=== PATIENT | female | born 1980 | race Caucasian/White ===

== ENCOUNTER 2018-02-07 07:38 | Day surgery (SDC) | payer SELFPAY ==
[~2018-02-07 07:38] MED LIST: DIPHENHYDRAMINE HCL 50 MG/ML VIAL ONE; EPINEPHRINE INJ 1 MG/10 ML DISP.SYRIN ONE; FLUMAZENIL INJ 0.5 MG/5 ML VIAL ONE; GLUCAGON,HUMAN RECOMB 1 MG INJ ONE; NALOXONE HCL INJ/PF 0.4 MG/1 ML SDV ONE; ONDANSETRON HCL INJ/PF 4 MG/2 ML SDV ONE
[2018-02-07] MEDS: MIDAZOLAM 2 MG/2 ML INJ ONE ×3 (08:06→08:19)
[2018-02-07] MEDS: FENTANYL CITRATE INJ/PF 100 MCG/2 ML AMPUL ONE ×3 (08:08→08:16)
--- NOTE | 2018-02-07 08:30 | Operative Report ---
Operative Report DATE OF SURGERY: 02/07/18 Operative Report: The risks benefits and alternatives of the procedure explained to the patient in detail and informed consent is obtained.A GIF Olympus video scope was inserted into the patient's mouth and hypopharynx, the esophagus is identified intubated and insufflated, the scope was then advanced through the esophagus stomach and duodenum ,retroflexion maneuver is done, the esophagus stomach and first and second portions of the duodenum examined PREOPERATIVE DIAGNOSIS: Dysphagia, early satiety POSTOPERATIVE DIAGNOSIS: gastric outlet stricture requiring balloon dilation with 12mm balloon. gastritis, s/p biopsy for H.Pylori. hiatal hernia. esophagitis. possible Schatzki's ring biopsy to break OPERATION: EGD with balloon dilation. EGD with biopsy SURGEON: BERENICE CERDA ANESTHESIA: Moderate Sedation - 6 mg of Versed, 125 mcg of fentanyl. Conscious sedation monitoring time 30 minutes. TISSUE REMOVED OR ALTERED: As noted above. COMPLICATIONS: None. ESTIMATED BLOOD LOSS: None. INTRAOPERATIVE FINDINGS: As noted above. PROCEDURE: Patient tolerated the procedure well. No immediate postprocedure complications are noted. Patient discharged in good condition. Discharge date 02/07/2018. Discharge diet: Regular. Discharge activity: Regular. 2-3-week follow-up to discuss findings. Patient is instructed call the office or proceed to the emergency room should there be any further problems or questions. Wait on the pathology.
[2018-02-07 09:39] VITALS: BP 101/72
== END 2018-02-07 09:40 | disposition home or self-care (01) ==
LOC: END 07:38
PROVIDERS: ATTEND Internal Medicine Gastroenterology
DX: K29.50 Unspecified chronic gastritis without bleeding (principal); K20.9 Esophagitis, unspecified; K44.9 Diaphragmatic hernia without obstruction or gangrene; Z77.22 Contact with and (suspected) exposure to environmental tobacco smoke (acute) (chronic); Z79.899 Other long term (current) drug therapy; Z79.1 Long term (current) use of non-steroidal anti-inflammatories (NSAID)
CPT/HCPCS: 43239; 43249; 88342 ×2; 88305 ×2; C1726; J2250; J3010; J2310; J0171; J1200; J1610; J2405; J3490

== ENCOUNTER 2018-04-02 09:59 | Day surgery (SDC) | payer SELFPAY ==
[~2018-04-02 09:59] MED LIST changes: -DIPHENHYDRAMINE HCL 50 MG/ML VIAL ONE; -EPINEPHRINE INJ 1 MG/10 ML DISP.SYRIN ONE; -FLUMAZENIL INJ 0.5 MG/5 ML VIAL ONE; -GLUCAGON,HUMAN RECOMB 1 MG INJ ONE; -NALOXONE HCL INJ/PF 0.4 MG/1 ML SDV ONE; -ONDANSETRON HCL INJ/PF 4 MG/2 ML SDV ONE; +PROPOFOL INJ 200 MG/20 ML VIAL IV ONE
[2018-04-02 11:56] VITALS: BP 107/62
--- NOTE | 2018-04-02 14:34 | Operative Report ---
Operative Report DATE OF SURGERY: 04/02/18 Operative Report: The risks, benefits and alternatives of the procedure including the risks of bleeding, perforation requiring surgery are explained to the patient in detail and informed consent was obtained. The patient was placed in the left, lateral decubital position. Timeout was called. Propofol medications administered. A rectal examination is done which did not reveal any masses, tears or fissures. An Olympus videoscope was inserted into the patient's rectum. The scope was then carefully advanced all the way to the cecum. The cecum was identified by the usual anatomical landmarks including the ileocecal valve as well as the appendiceal office. Photodocumentation was obtained. The scope was then sequentially pulled back via the various segments of the colon including the ascending colon, hepatic flexure, transverse colon, splenic flexure, descending colon and finally into the rectosigmoid portions of the colon. Retroflexion maneuver was performed. The risks benefits and alternatives of the procedure explained to the patient in detail and informed consent is obtained.A GIF Olympus video scope was inserted into the patient's mouth and hypopharynx, the esophagus is identified intubated and insufflated, the scope was then advanced through the esophagus stomach and duodenum ,retroflexion maneuver is done the esophagus stomach and first and second portions of the duodenum examined PREOPERATIVE DIAGNOSIS: Gastric outlet obstruction, nausea vomiting in the past. Change in bowel habits POSTOPERATIVE DIAGNOSIS: Right colon inflammation status post biopsy to rule out microscopic colitis. Gastric outlet stricture status post dilatation 15 mm for 1 minute followed by 18 mm for 1 minute. There was some heme demonstrated postprocedure indicating dilation of the stricture OPERATION: Colonoscopy with biopsy. EGD with balloon dilation SURGEON: BERENICE CERDA ANESTHESIA: LMAC TISSUE REMOVED OR ALTERED: As noted above. COMPLICATIONS: None. ESTIMATED BLOOD LOSS: None. INTRAOPERATIVE FINDINGS: As noted above. PROCEDURE: Patient tolerated the procedure well. No immediate postprocedure complications are noted. Patient discharged in good condition. Discharge date 04/02/2018 Discharge diet: Regular. Discharge activity: Regular. 2-3-week follow-up to discuss findings. Patient is instructed to call the office or proceed to the emergency room should there be any further problems or questions. I will wait on the pathology.
== END 2018-04-02 11:50 | disposition home or self-care (01) ==
LOC: END 09:59
PROVIDERS: ATTEND Internal Medicine Gastroenterology
DX: K31.89 Other diseases of stomach and duodenum (principal); K31.1 Adult hypertrophic pyloric stenosis; K44.9 Diaphragmatic hernia without obstruction or gangrene; K21.9 Gastro-esophageal reflux disease without esophagitis; K52.9 Noninfective gastroenteritis and colitis, unspecified
CPT/HCPCS: 43249; 45380; 88305 ×2; C1726; J2704; 813

== ENCOUNTER 2018-11-05 10:31 | Day surgery (SDC) | payer SELFPAY ==
[2018-11-05] MEDS ORDERED: PROPOFOL INJ 200 MG/20 ML VIAL IV ONE (11:28)
--- NOTE | 2018-11-05 12:38 | Operative Report ---
Operative Report DATE OF SURGERY: 11/05/18 Operative Report: The risks benefits and alternatives of the procedure explained to the patient in detail and informed consent is obtained.A GIF Olympus video scope was inserted into the patient's mouth and hypopharynx, the esophagus is identified intubated and insufflated, the scope was then advanced through the esophagus stomach and duodenum ,retroflexion maneuver is done, the esophagus stomach and first and second portions of the duodenum examined. PREOPERATIVE DIAGNOSIS: Nausea vomiting, gastroparesis POSTOPERATIVE DIAGNOSIS: Gastritis status post biopsy rule out Helicobacter pylori. Submucosal Botox injection at the gastric outlet total of 100 units per 5 mL with 1 cc injection. OPERATION: EGD with submucosal injection. EGD with biopsy SURGEON: BERENICE CERDA ANESTHESIA: LMAC TISSUE REMOVED OR ALTERED: As noted above COMPLICATIONS: None. ESTIMATED BLOOD LOSS: None. INTRAOPERATIVE FINDINGS: As noted above. PROCEDURE: Patient tolerated the procedure well. No immediate postprocedure comp occasions are noted. Patient is discharged in good condition. Discharge date 11/05/2018. Discharge diet: Regular. Discharge activity: Regular. 2 to 3-week follow-up to discuss findings. Patient is instructed to call the office or proceed to the emergency room should there be any further problems or questions. Wait on the pathology.
--- NOTE | 2018-11-05 12:48 | Operative Report ---
Operative Report DATE OF SURGERY: 11/05/18 Operative Report: The risks benefits and alternatives of the procedure explained to the patient in detail and informed consent is obtained.A GIF Olympus video scope was inserted into the patient's mouth and hypopharynx ,the esophagus is identified intubated and insufflated, the scope was then advanced through the esophagus stomach and duodenum, retroflexion maneuver is done ,the esophagus stomach and first and second portions of the duodenum examined. PREOPERATIVE DIAGNOSIS: Nausea vomiting POSTOPERATIVE DIAGNOSIS: Gastric eyelid obstruction status post balloon dilatation from 12 mm to 13.5 mm to 15 mm OPERATION: EGD with submucosal injection. EGD with biopsy SURGEON: BERENICE CERDA ANESTHESIA: LMAC TISSUE REMOVED OR ALTERED: None. COMPLICATIONS: None. ESTIMATED BLOOD LOSS: None. INTRAOPERATIVE FINDINGS: As noted above. PROCEDURE: Patient tolerated procedure well. No immediate postprocedure complications are noted. Patient is discharged in good condition. Discharge date 11/05/2018. Discharge diet: Regular. Discharge activity: Regular. 2 to 3-week follow-up to discuss findings. Patient is instructed to call the office or proceed to the emergency room should there be any further problems or questions. Of note previous procedure dictation on this patient can be ignored. This is in fact the dictation for this specific patient.
[2018-11-05 14:24] VITALS: BP 103/71
== END 2018-11-05 12:10 | disposition home or self-care (01) ==
LOC: END 10:31
PROVIDERS: ATTEND Internal Medicine Gastroenterology
DX: K31.1 Adult hypertrophic pyloric stenosis (principal); K44.9 Diaphragmatic hernia without obstruction or gangrene; D64.9 Anemia, unspecified; E07.9 Disorder of thyroid, unspecified
CPT/HCPCS: 43249; C1726; J2704

== ENCOUNTER 2020-02-11 22:24 | Observation (INO) | payer SELFPAY ==
--- NOTE | 2020-02-11 23:22 | ER Document Report ---
ED Medical Screen (RME) - General Chief Complaint: Flank Pain Stated Complaint: LEFT SIDED PAIN Time Seen by Provider: 02/11/20 23:14 Primary Care Provider: SERGE WATSON MD [Primary Care Provider] - Follow up as needed Mode of Arrival: Ambulatory Information source: Patient Notes: Patient is an otherwise healthy 39-year-old female coming in today with left low back pain that radiates around the left flank through the left upper quadrant up the left side of her back and into her neck and into her chest. Chest pain is pleuritic/sharp in nature. She is not short of breath. General exam: Nontoxic Cardiac regular rate and rhythm Pulmonary clear to auscultation Musculoskeletal no reproducible chest pain. Neuro no focal deficits I have greeted and performed a rapid initial assessment of this patient. A comprehensive ED assessment and evaluation of the patient, analysis of test results and completion of the medical decision making process will be conducted by additional ED providers. TRAVEL OUTSIDE OF THE [place] IN LAST 30 DAYS: No - Related Data Allergies/Adverse Reactions: No Known Allergies Allergy (Verified 11/05/18 10:38) Past Medical History - Past Medical History Cardiac Medical History: Denies: Hx Coronary Artery Disease, Hx Heart Attack, Hx Hypertension Pulmonary Medical History: Denies: Hx Asthma, Hx Bronchitis, Hx COPD, Hx Pneumonia Neurological Medical History: Denies: Hx Cerebrovascular Accident, Hx Seizures Renal/ Medical History: Reports: Hx Ovarian Cysts Musculoskeltal Medical History: Denies Hx Arthritis Past Surgical History: Reports: Hx Section, Hx Dilation and Curettage, Hx Gynecologic Surgery, Hx Tubal Ligation. Denies: Hx Hysterectomy - Immunizations Immunizations up to date: Yes Hx Diphtheria, Pertussis, Tetanus Vaccination: Yes Physical Exam - Vital signs Vitals: Temp Pulse Resp BP Pulse Ox 98.2 F 107 H 20 144/89 H 100 02/11/20 22:43 02/11/20 22:43 02/11/20 22:43 02/11/20 22:43 02/11/20 22:43 Course - Vital Signs Vital signs: Temp Pulse Resp BP Pulse Ox 98.2 F 107 H 20 144/89 H 100 02/11/20 22:43 02/11/20 22:43 02/11/20 22:43 02/11/20 22:43 02/11/20 22:43 Doctor's Discharge - Discharge Referrals: SERGE WATSON MD [Primary Care Provider] - Follow up as needed
[2020-02-12 00:11] LABS: APPEARANCE,URINE CLEAR; BILIRUBIN,URINE NEGATIVE (NEGATIVE); COLOR,URINE YELLOW; GLUCOSE, URINE NEGATIVE (NEGATIVE); KETONES,URINE NEGATIVE (NEGATIVE); PROTEIN,URINE NEGATIVE (NEGATIVE); URINE SPECIFIC GRAVITY 1.018; UROBILINOGEN,URINE NEGATIVE mg/dL (<2.0)
[2020-02-12 00:14] LABS: ABSOLUTE EOSINOPHILS # (AUTO) 0.2 10^3/uL (0.0-0.6); ABSOLUTE LYMPHOCYTES (AUTO) 2.1 10^3/uL (0.5-4.7); MEAN CORPUSCULAR VOLUME 90 fl (80-97); TOTAL CELLS COUNTED % (AUTO) 100 %
[2020-02-12 00:22] LABS: ABSOLUTE MONOCYTES (AUTO) 0.6 10^3/uL (0.1-1.4); ABSOLUTE NEUT (AUTO) 5.1 10^3/uL (1.7-8.2); BASOPHILS % (AUTO) 0.4 % (0-2); EOSINOPHILS % (AUTO) 2.6 % (0-6); HEMATOCRIT 38.3 % (36.0-47.0); HEMOGLOBIN 13.4 g/dL (12.0-15.5); LYMPHOCYTES % (AUTO) 26.2 % (13-45); MEAN CORPUSCULAR HEMOGLOBIN 31.5 pg (27.0-33.4); MONOCYTES % (AUTO) 7.5 % (3-13); PLATELET COUNT 272 10^3/uL (150-450); RED BLOOD COUNT 4.26 10^6/uL (3.72-5.28); RED CELL DISTRIBUTION WIDTH 14.2 % (11.5-14.0); SEGMENTED NEUTROPHILS % (AUTO) 63.3 % (42-78)
[2020-02-12 00:25] LABS: ALBUMIN 3.9 g/dL (3.5-5.0); ALKALINE PHOSPHATASE 60 U/L (38-126); ANION GAP 8 (5-19); ASPARTATE AMINO TRANSFERASE 23 U/L (14-36); BILIRUBIN,DIRECT 0.2 mg/dL (0.0-0.4); BILIRUBIN,TOTAL 0.3 mg/dL (0.2-1.3); BLOOD UREA NITROGEN 13 mg/dL (7-20); CALCIUM 9.1 mg/dL (8.4-10.2); CARBON DIOXIDE 22 mmol/L (22-30); CHLORIDE 110 mmol/L (98-107); GLUCOSE 99 mg/dL (75-110); POTASSIUM 4.5 mmol/L (3.6-5.0)
--- NOTE | 2020-02-12 00:27 | RADIOLOGY REPORT (SQ) ---
EXAM DESCRIPTION: XR CHEST 1 VIEW COMPLETED DATE/TME: 02/11/2020 23:18 CLINICAL HISTORY: 39 years Female, pleuritic cp COMPARISON: None. NUMBER OF VIEWS/TECHNIQUE: 1/AP FINDINGS: Adequate lung volume, clear parenchyma, normal cardiac silhouette, and intact bony thorax. IMPRESSION: No acute cardiopulmonary findings.
--- NOTE | 2020-02-12 02:24 | ER Document Report ---
ED Cardiac - General Chief Complaint: Flank Pain Stated Complaint: LEFT SIDED PAIN Time Seen by Provider: 02/11/20 23:14 Primary Care Provider: SERGE WATSON MD [NO LOCAL MD] - Follow up as needed Mode of Arrival: Ambulatory Notes: CHIEF COMPLAINT: Left pleuritic pain for 1 week HPI: 39-year-old female who is on oral control presenting for left pleuritic pain left back pain left upper quadrant pain for 1 week. Pain is specific to taking a deep breath and mild shortness of breath. Has not had nausea or vomiting. No change in the discomfort with eating or drinking. No fever or other recent illness. Patient denies trauma. Patient denies increase in discomfort with position change or movement ROS: See HPI - all other systems were reviewed and are otherwise negative Constitutional: no fever Eyes: no drainage, no blurred vision ENT: no runny nose, no sore throat Cardiovascular: + chest pain Resp: + SOB, no cough GI: no vomiting, no diarrhea, no abdominal pain : no dysuria Integumentary: no rash Allergy: no hives Musculoskeletal: no extremity pain or swelling Neurological: no numbness/tingling, no weakness MEDICATIONS: I agree with the patient medications as charted by the RN. ALLERGIES: I agree with the allergies as charted by the RN. PAST MEDICAL HISTORY/PAST SURGICAL HISTORY: Reviewed and agree as charted by RN. SOCIAL HISTORY: Reviewed and agree as charted by RN. FAMILY HISTORY: No significant familial comorbid conditions directly related to patient complaint EXAM: Reviewed vital signs as charted by RN. CONSTITUTIONAL: Alert and oriented and responds appropriately to questions. Well-appearing; well-nourished HEAD: Normocephalic; atraumatic EYES: PERRL; Conjunctivae clear, sclerae non-icteric ENT: normal nose; no rhinorrhea; moist mucous membranes; pharynx without lesions noted, no uvula edema or deviation, no tonsillar hypertrophy, phonation normal NECK: Supple without meningismus; non-tender; no cervical lymphadenopathy, no masses CARD: RRR; no murmurs, no clicks, no rubs, no gallops; symmetric distal pulses RESP: Normal chest excursion without splinting or tachypnea; breath sounds clear and equal bilaterally; no wheezes, no rhonchi, no rales, pulse oximetry ABD/GI: Normal bowel sounds; non-distended; soft, non-tender, no rebound, no guarding; no palpable organomegaly or masses. BACK: The back appears normal and is non-tender to palpation, there is no CVA tenderness EXT: Normal ROM in all joints; non-tender to palpation; no cyanosis, no effusions, no edema SKIN: Normal color for age and race; warm; dry; good turgor; no acute lesions noted NEURO: Moves all extremities equally; Motor and sensory function intact PSYCH: The patient's mood and manner are appropriate. Grooming and personal hygiene are appropriate. MDM: EKG normal sinus rhythm with a ventricular rate of 85. LA 128. QT 356. QTc 424. Possible left atrial abnormality, borderline T wave flattening in the anterior lateral leads. Abnormal EKG. Interpreted by emergency department physician. 39-year-old female presenting with left pleuritic pain for 1 week. Patient is on oral control. Does not have reproducible pain in the abdomen but has increased pleuritic discomfort. Initial screening labs by triage process did not show acute emergent abnormalities including a normal troponin. Will obtain CTA of the chest to evaluate for PE. TRAVEL OUTSIDE OF THE [place] IN LAST 30 DAYS: No - Related Data Allergies/Adverse Reactions: No Known Allergies Allergy (Verified 11/05/18 10:38) Home Medications: armour thyroid, migrane med, vitamin d, omeprazole Past Medical History - General Information source: Patient - Social History Smoking Status: Never Smoker Family History: Reviewed & Not Pertinent, Arthritis, CAD, DM, Hyperlipidemia, Hypertension, Malignancy, Thyroid Disfunction - Past Medical History Cardiac Medical History: Denies: Hx Coronary Artery Disease, Hx Heart Attack, Hx Hypertension Pulmonary Medical History: Denies: Hx Asthma, Hx Bronchitis, Hx COPD, Hx Pneumonia Neurological Medical History: Denies: Hx Cerebrovascular Accident, Hx Seizures Renal/ Medical History: Reports: Hx Ovarian Cysts Musculoskeletal Medical History: Denies Hx Arthritis Past Surgical History: Reports: Hx Section, Hx Dilation and Curettage, Hx Gynecologic Surgery, Hx Tubal Ligation. Denies: Hx Hysterectomy - Immunizations Immunizations up to date: Yes Hx Diphtheria, Pertussis, Tetanus Vaccination: Yes Physical Exam - Vital signs Vitals: Temp Pulse Resp BP Pulse Ox 98.2 F 107 H 20 144/89 H 100 02/11/20 22:43 02/11/20 22:43 02/11/20 22:43 02/11/20 22:43 02/11/20 22:43 Course - Re-evaluation Re-evalutation: 02/12/20 03:57 I received a call from the reading radiologist. Patient has a fairly extensive left-sided pulmonary embolus, possible pulmonary infarction, mild right heart strain. I discussed the patient with Dr. Chen, hospitalist. Will admit, start Lovenox - Vital Signs Vital signs: Temp Pulse Resp BP Pulse Ox 99.0 F 88 16 105/80 100 02/12/20 03:01 02/12/20 03:01 02/12/20 03:01 02/12/20 03:01 02/12/20 03:01 - Laboratory Result Diagrams: 02/11/20 23:43 02/11/20 23:43 Laboratory results interpreted by me: 02/11/20 02/11/20 02/11/20 23:43 23:43 23:43 RDW 14.2 H Chloride 110 H Urine Blood SMALL H Leukocyte Esterase Rfl TRACE H Discharge - Discharge Clinical Impression: Pulmonary infarction Pulmonary embolism Qualifiers: Pulmonary embolism type: unspecified Chronicity: acute Acute cor pulmonale presence: unspecified Qualified Code(s): I26.99 - Other pulmonary embolism without acute cor pulmonale Condition: Fair Disposition: ADMITTED INPATIENT Admitting Provider: Dr. Chen, hospitalist Unit Admitted: Telemetry Referrals: SERGE WATSON MD [NO LOCAL MD] - Follow up as needed
[2020-02-12 02:32] LABS: INTERNATIONAL RATION (INR) 0.93; PROTHROMBIN TIME 12.7 SEC (11.4-15.4)
[2020-02-12] MEDS ORDERED: ONDANSETRON HCL INJ/PF 4 MG/2 ML SDV IV ONE (03:45)
[2020-02-12] MEDS ORDERED: FENTANYL CITRATE INJ/PF 100 MCG/2 ML AMPUL IV ONE (03:45)
--- NOTE | 2020-02-12 03:48 | RADIOLOGY REPORT (SQ) ---
CLINICAL INDICATION: left pleuritic chest pain. CREAT 1.00 HCG NEG. . TECHNIQUE: CT arteriography was obtained of the chest with multiplanar MIP and/or 3-D angiographic reconstructions. This exam was performed according to our departmental dose-optimization program, which includes automated exposure control, adjustment of the mA and/or kV according to patient size and/or use of iterative reconstruction techniques. COMPARISON: None. CORRELATION: None. FINDINGS: Adequate contrast bolus. Average Hounsfield unit measurement within main pulmonary artery segment of 283. Artifact from venous opacification. Motion artifact There is a large pulmonary embolus left main pulmonary artery extending into lower lobe. This is near occlusive.. This is a small to moderate thrombus burden. There is mild right heart strain with flattening of the interventricular septum Thoracic aorta is of normal caliber. Apparent filling defect within the right internal jugular vein. This may merely represent streaming artifact. The heart is of normal size. No pericardial effusion. No bulky mediastinal adenopathy. The lungs demonstrate mild subpleural interstitial alveolar space disease left lower lobe in the same distribution as the emboli. The possibility of pulmonary infarct is raised. Visualized abdominal contents are unremarkable. Visualized bones are unremarkable. IMPRESSION: Pulmonary embolus identified peripheral left main pulmonary artery extending to left lower lobe. This is small to moderate thrombus burden and some of this disease is occlusive. Patchy areas of alveolar space disease left lower lobe in a subpleural distribution, suspicious for small areas of pulmonary infarction. Mild right heart strain .
[2020-02-12] MEDS ORDERED: ENOXAPARIN SODIUM INJ 80 MG/0.8 ML DISP.SYRIN SUBCUT SCH ×2 (04:00→16:00)
[2020-02-12] MEDS ORDERED: HEPARIN SOD (PORCINE) 1,000 UNIT/ML 10 ML VIAL IV ONE (04:07)
[2020-02-12] MEDS ORDERED: HEPARIN SODIUM,PORCINE/D5W 25,000 UNIT/250 ML RTUINJ IV PRN (04:07)
[2020-02-12] MEDS: OXYCODONE-ACETAMINOPHEN 5-325 MG TABLET PO PRN ×2 (04:48→11:17)
--- NOTE | 2020-02-12 05:31 | PDOC H&P ---
History of Present Illness Admission Date/PCP: 02/12/20 04:16 SHANTHI HARRIS MD 02/12/2020 Patient complains of: Left-sided chest pain History of Present Illness: VINCENT CHIRINOS is a 39 year old female with no significant past medical history who presented to the ER with a 1 week duration of left-sided pleuritic chest pain. Patient reports that the pain was sharp, 10/10 intensity at its worst, aggravated by deep breathing and coughing. She tried [id number] ibuprofen multiple times but was not helpful in controlling her pain. She also endorses mild shortness of breath with exertion during this time but denies any history of dizziness or lightheadedness. She also denies cough, hemoptysis, fever, palpitation, orthopnea, PND. She has not had any leg pain or swelling recently. She also denies any history of recent long distance travel or p rolonged immobilization. She reports that she has been on oral contraceptive for the past 5 years. On arrival at the ED patient was hemodynamically stable and saturating 100% on room air. 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 Musculoskeltal Medical History: Denies: Arthritis Hematology: Reports: Anemia Past Surgical History Past Surgical History: Reports: Section, Tubal Ligation Denies: Hysterectomy Social History Information Source: Patient Lives with: Family Smoking Status: Never Smoker Electronic Cigarette use?: No Frequency of Alcohol Use: None Hx Recreational Drug Use: No - Advance Directive Resuscitation Status: Full Code Family History Family History: Reviewed & Not Pertinent, Arthritis, CAD, DM, Hyperlipidemia, Hypertension, Malignancy, Thyroid Disfunction Parental Family History Reviewed: Yes Children Family History Reviewed: Yes Sibling(s) Family History Reviewed.: Yes Medication/Allergy Home Medications: Norgestrel-Ethinyl Estradiol [Low-Ogestrel] 1 each PO DAILY 02/05/18 Omeprazole 40 mg PO DAILY 02/05/18 Thyroid 60 mg PO DAILY 11/02/18 Topiramate [Topiramate ER] 25 mg PO BID 11/02/18 Allergies/Adverse Reactions: No Known Allergies Allergy (Verified 11/05/18 10:38) Review of Systems Constitutional: ABSENT: chills, fever(s), headache(s), weight gain, weight loss Eyes: ABSENT: visual disturbances Ears: ABSENT: hearing changes Nose, Mouth, and Throat: ABSENT: as per HPI, headache(s), mouth pain, sore throat, vertigo, other Cardiovascular: PRESENT: as per HPI Respiratory: PRESENT: as per HPI Gastrointestinal: ABSENT: abdominal pain, constipation, diarrhea, hematemesis, hematochezia, nausea, vomiting Genitourinary: ABSENT: dysuria, hematuria Musculoskeletal: ABSENT: joint swelling Integumentary: ABSENT: rash, wounds Neurological: ABSENT: abnormal gait, abnormal speech, confusion, dizziness, focal weakness, syncope Psychiatric: ABSENT: anxiety, depression, homidical ideation, suicidal ideation Endocrine: ABSENT: cold intolerance, heat intolerance, polydipsia, polyuria Hematologic/Lymphatic: ABSENT: easy bleeding, easy bruising Physical Exam Vital Signs: Temp Pulse Resp BP Pulse Ox 99.0 F 88 14 133/83 H 100 02/12/20 03:01 02/12/20 03:01 02/12/20 04:01 02/12/20 04:00 02/12/20 04:01 Intake & Output 02/10/20 02/11/20 02/12/20 06:59 06:59 06:59 Weight 68.039 kg Additional comments: GENERAL APPEARANCE: in no acute distress. Alert and oriented x4 HEENT: Normocephalic and atraumatic. No scleral icterus. PERRLA, EOMs are full, no conjunctival injection is noted. Oral mucosa is pink and moist with good dentition NECK: Supple. Trachea is midline. No evidence of thyroid enlargement. No lymphadenopathy or tenderness. No carotid bruit. No JVD CHEST: Symmetric. Nontender to palpation. LUNGS: Breath sounds are equal and clear bilaterally. No wheezes, rhonchi, or rales. HEART: Regular rate and rhythm with normal S1 and S2. No murmurs, gallops, or rubs. ABDOMEN: Soft, flat, and benign. No mass, tenderness, guarding, or rebound. No o rganomegaly or hernia. Bowel sounds are present. No CVA tenderness or flank mass.. EXTREMITIES: No cyanosis, clubbing, or edema. MUSCULOSKELETAL: No deformity, atrophy or swelling noted PSYCHIATRIC: The patient is awake, alert, and oriented x3. Recent and remote memory is intact. Appropriate mood and affect. SKIN: Warm, dry, and well perfused. No lesions or rashes are noted. NEUROLOGIC: No focal sensory or motor deficits are noted. Gait is normal. Cranial nerves II through XII are intact. Deep tendon reflexes are intact. Results Laboratory Results: 02/11/20 23:43 02/11/20 23:43 02/11/20 02/11/20 02/11/20 23:43 23:43 23:43 WBC 8.0 RBC 4.26 Hgb 13.4 Hct 38.3 MCV 90 MCH 31.5 MCHC 35.0 RDW 14.2 H Plt Count 272 Seg Neutrophils % 63.3 Sodium 140.4 Potassium 4.5 Chloride 110 H Carbon Dioxide 22 Anion Gap 8 BUN 13 Creatinine 1.00 Est GFR ( Amer) > 60 Glucose 99 Calcium 9.1 Total Bilirubin 0.3 AST 23 Alkaline Phosphatase 60 Total Protein 7.0 Albumin 3.9 Serum HCG, Qual NEGATIVE Urine Color Urine Appearance Urine pH Ur Specific Donald Urine Protein Urine Glucose (UA) Urine Ketones Urine Blood Urine RBC (Auto) 02/11/20 23:43 WBC RBC Hgb Hct MCV MCH MCHC RDW Plt Count Seg Neutrophils % Sodium Potassium Chloride Carbon Dioxide Anion Gap BUN Creatinine Est GFR ( Amer) Glucose Calcium Total Bilirubin AST Alkaline Phosphatase Total Protein Albumin Serum HCG, Qual Urine Color YELLOW Urine Appearance CLEAR Urine pH 6.0 Ur Specific Donald 1.018 Urine Protein NEGATIVE Urine Glucose (UA) NEGATIVE Urine Ketones NEGATIVE Urine Blood SMALL H Urine RBC (Auto) 2 02/11/20 23:43 Troponin I < 0.012 Impressions: Chest X-Ray 02/11/20 23:18 IMPRESSION: No acute cardiopulmonary findings. Chest/Abdomen CTA 02/12/20 02:11 IMPRESSION: Pulmonary embolus identified peripheral left main pulmonary artery extending to left lower lobe. This is small to moderate thrombus burden and some of this disease is occlusive. Patchy areas of alveolar space disease left lower lobe in a subpleural distribution, suspicious for small areas of pulmonary infarction. Mild right heart strain . Assessment and Plan - Diagnosis (1) Pulmonary embolism Qualifiers: Pulmonary embolism type: unspecified Chronicity: acute Acute cor pulmonale presence: without acute cor pulmonale Qualified Code(s): I26.99 - Other pulmonary embolism without acute cor pulmonale Is this a current diagnosis for this admission?: Yes Plan: Patient is hemodynamically stable on presentation CTA chest was significant for a small to moderate sized thrombus in peripheral left main pulmonary artery extending to left lower lobe with areas of small subpulmonary infarction EKG showed no significant sign of right heart strain Cardiac enzymes are negative Will be admitted to telemetry unit for closer monitoring Was given therapeutic dose Lovenox at the ER and will continue at 70 mg subcu every 12 hourly Discussed about holding oral contraceptive going forward Percocet 5 mg every 6 hourly as needed for pain control Consider 2D echo the morning to assess more for signs of right heart strain Closely monitor vital signs including oxygenation (2) Pulmonary infarction Is this a current diagnosis for this admission?: Yes Plan: Management as stated above - Plan Summary Summary: For plan of care please see above under problem list - Time Time Spent with patient: 35 or more minutes Total Critical Time (Minutes): 45 Medications reviewed and adjusted accordingly: Yes Anticipated Discharge Disposition: Home, Self Care Anticipated Discharge Timeframe: within 48 hours Disposition: Likely home with oral anticoagulation - Inpatient Certification Based on my medical assessment, after consideration of the patient's comorbidities, presenting symptoms, or acuity I expect that the services needed warrant INPATIENT care.: Yes I certify that my determination is in accordance with my understanding of Medicare's requirements for reasonable and necessary INPATIENT services [42 CFR 412.3e].: Yes Medical Necessity: Need Close Monitoring Due to Risk of Patient Decompensation, Need For Continuous Telemetry Monitoring Post Hospital Care: D/C or Transfer Summary
[2020-02-12] MEDS ORDERED: HEPARIN SOD (PORCINE) 1,000 UNIT/ML 10 ML VIAL IV PRN (07:08)
[2020-02-12] MEDS ORDERED: FAMOTIDINE 20 MG TABLET PO SCH (10:00)
[2020-02-12 11:31] LABS: APPEARANCE,URINE CLEAR; BILIRUBIN,URINE NEGATIVE (NEGATIVE); COLOR,URINE STRAW; GLUCOSE, URINE NEGATIVE (NEGATIVE); KETONES,URINE NEGATIVE (NEGATIVE); LEUKOCYTE ESTERASE,URINE NEGATIVE (NEGATIVE); NITRITE,URINE NEGATIVE (NEGATIVE); PROTEIN,URINE NEGATIVE (NEGATIVE); URINE SPECIFIC GRAVITY 1.021; UROBILINOGEN,URINE NEGATIVE mg/dL (<2.0)
[2020-02-12] MEDS ORDERED: ONDANSETRON HCL INJ/PF 4 MG/2 ML SDV ONE (11:53)
[2020-02-12 15:29] VITALS: BP 113/17
--- NOTE | 2020-02-12 16:32 | EKG REPORT ---
SEVERITY:- BORDERLINE ECG - SINUS RHYTHM PROBABLE LEFT ATRIAL ABNORMALITY BORDERLINE T ABNORMALITIES, ANT-LAT LEADS : Confirmed by: Jonathan Hodges MD 12-Feb-2020 16:31:36
--- NOTE | 2020-02-12 16:44 | XCELERA REPORT ---
[address] [address] Transthoracic Echocardiogram Report Name: VINCENT CHIRINOS Age: 39 yrs Gender: Female : 1980 Patient Status: Inpatient Patient Location: [facility]^A Study Date: 02/12/2020 07:00 AM History: Pulmonary embolism Height: 67 in Weight: 149 lb BSA: 1.8 m2 Procedure: A complete two-dimensional transthoracic echocardiogram was performed (2D, M-mode, spectral and color flow Doppler). The study was technically difficult with many images being suboptimal in quality. Reason For Study: PE, to assess for signs of right strain Previous Evaluation: No previous studies were available. History: Pulmonary embolsim. Ordering Physician: CLINT BRIDGES Performed By: Mayi Jewell Interpretation Summary Left ventricular systolic function is normal. The Ejection Fraction estimate is 55-60% The right ventricle is mild to moderately dilated. The right ventricular systolic function is normal. There is no mitral regurgitation noted. There is no aortic valve stenosis There is a trace amount of tricuspid regurgitation There is no pericardial effusion. MMode/2D Measurements & Calculations RVDd: 2.1 cm LVIDd: 4.5 cm FS: 39.3 % Ao root diam: 2.5 cm IVSd: 0.75 cm LVIDs: 2.8 cm EDV(Teich): 94.6 ml Ao root area: 5.0 cm2 LVPWd: 0.92 cm ESV(Teich): 28.5 ml EF(Teich): 69.9 % Doppler Measurements & Calculations MV E max orlin: MV dec slope: Ao V2 max: LV V1 max P.1 cm/sec 423.0 cm/sec2 120.1 cm/sec 5.9 mmHg MV A max orlin: MV dec time: 0.22 sec Ao max P.8 mmHgLV V1 max: 71.1 cm/sec 121.0 cm/sec MV E/A: 1.3 PA V2 max: PI end-d orlin: TR max orlin: 80.2 cm/sec 67.5 cm/sec 216.7 cm/sec PA max P.6 mmHg TR max P.0 mmHg Left Ventricle The left ventricle is normal in size. There is normal left ventricular wall thickness. Left ventricular systolic function is normal. The Ejection Fraction estimate is 55-60%. Doppler measurements suggest normal left ventricular diastolic function. No regional wall motion abnormalities noted. Right Ventricle The right ventricle is mild to moderately dilated. The right ventricular systolic function is normal. Atria The right atrium is normal. The left atrial size is normal. The interatrial septum is intact with no evidence for an atrial septal defect. There is no Doppler evidence for an interatrial shunt. Mitral Valve The mitral valve is grossly normal. There is no mitral valve stenosis. There is no mitral regurgitation noted. Aortic Valve The aortic valve is trileaflet. The aortic valve is normal in structure and function. The aortic valve opens well. There is no aortic valve stenosis. No aortic regurgitation is present. Tricuspid Valve The tricuspid valve is normal in structure and function. There is a trace amount of tricuspid regurgitation. Tricuspid regurgitation jet envelope not well defined to measure RV systolic pressure accurately. Pulmonic Valve The pulmonic valve is normal in structure and function. There is a trace amount of pulmonic regurgitation. Great Vessels The aortic root is normal size. The inferior vena cava appeared normal and decreased > 50% with respiration (RAP 5-10 mmHg). Effusions There is no pericardial effusion. : CLINT BRIDGES Anil
--- NOTE | 2020-02-12 18:56 | PDOC DISCHARGE SUMMARY ---
Impression - Admit/DC Date/PCP Admission Date/Primary Care Provider: 02/12/20 04:16 DOLORES READ-C Discharge Date: 02/12/20 - Discharge Diagnosis (1) Pulmonary embolism Is this a current diagnosis for this admission?: Yes (2) Pulmonary infarction Is this a current diagnosis for this admission?: Yes - Assessment Summary: Pulmonary embolism Pt presented c/o left sided chest pain, worse with deep inhalation Pt with provoked pulmonary embolism as confirmed by CTA. - Pt with history of OCP use, otherwise hx unremarkable for risk factors Patient is hemodynamically stable on initial presentation and throughout hospital course CTA chest was significant for a small to moderate sized thrombus in peripheral left main pulmonary artery extending to left lower lobe with areas of small subpulmonary infarction EKG showed no significant sign of right heart strain Cardiac enzymes are negative Admitted to telemetry as observation for cardiac monitoring. Inpatient treatment consisted of Lovenox 70 mg subcu every 12 hourly Will initiate Eliquis 5mg BID PO daily for outpatient management - Pt to take 10mg PO BID for 7 days, then 5mg PO BID for a total of 3 months Instructed on discontinuing OCP at this time. - Per pt OCP use for heavy menstrual cycle and hx of ovarian cyst - Surgery hx of tubal ligation, with no plans/desire to have children - Discussed risk associated with while taking Eliquis, pt understanding of this - Educated on possible increase in menstrual bleed with Eliquis use - She is to avoid NSAIDs at this time, due to increased risk of bleed Percocet 5 mg every 6 hourly was utilized during admission for pain control - Intermittent relief of pain with treatment - Outpatient pain management to include Tylenol 1000 up to TID. - Provided with script for Percocet 5mg only to be used if pain uncontrolled with Tylenol. - Recommend utilize heating pad for pain Pt experienced nausea, provided rx for Zofran utilized prn for nausea 2D echo completed, mildly dilated right ventricle with normal right ventricular systolic function - No further treatment necessary at this time Pt O2 sat consistently 100% on room air while at rest and with ambulation Clear for d/c with instructions on close follow up with PCP within x1 week of discharge - Additional Information Resuscitation Status: Full Code Discharge Diet: As Tolerated Discharge Activity: Activity As Tolerated Referrals: SERGE AWTSON MD [NO LOCAL MD] - 02/19/20 8:45 am Prescriptions: Apixaban [Eliquis 5 mg Tablet] 5 mg PO BID #90 tablet Oxycodone HCl/Acetaminophen [Percocet 5-325 mg Tablet] 1 tab PO Q6HP PRN #6 tablet PRN Reason: Ondansetron [Zofran Odt 4 mg Tablet] 1 - 2 tab PO Q4HP PRN #10 tab.rapdis PRN Reason: Home Medications: Apixaban [Eliquis 5 mg Tablet] 5 mg PO BID #90 tablet 02/12/20 Omeprazole 40 mg PO QAM 02/12/20 Ondansetron [Zofran Odt 4 mg Tablet] 1 - 2 tab PO Q4HP PRN #10 tab.rapdis 02/12/20 Oxycodone HCl/Acetaminophen [Percocet 5-325 mg Tablet] 1 tab PO Q6HP PRN #6 tablet 02/12/20 Rizatriptan Benzoate [Rizatriptan] 10 mg PO Q8HP PRN 02/12/20 Thyroid,Pork [[place] Thyroid] 90 mg PO DAILY 02/12/20 Topiramate [Topamax 25 mg Tablet] 75 mg PO Q12 02/12/20 History of Present Illiness History of Present Illness: As per admitting HPI documented by Dr. Chen on 02/12/2020: "VINCENT CHIRINOS is a 39 year old female with no significant past medical history who presented to the ER with a 1 week duration of left-sided pleuritic chest pain. Patient reports that the pain was sharp, 10/10 intensity at its worst, aggravated by deep breathing and coughing. She tried [id number] ibuprofen multiple times but was not helpful in controlling her pain. She also endorses mild shortness of breath with exertion during this time but denies any history of dizziness or lightheadedness. She also denies cough, hemoptysis, fever, p alpitation, orthopnea, PND. She has not had any leg pain or swelling recently. She also denies any history of recent long distance travel or prolonged immobilization. She reports that she has been on oral contraceptive for the past 5 years. On arrival at the ED patient was hemodynamically stable and saturating 100% on room air." Physical Exam Vital Signs: Temp Pulse Resp BP Pulse Ox 97.6 F 70 18 103/62 100 02/12/20 12:57 02/12/20 12:57 02/12/20 12:57 02/12/20 12:57 02/12/20 12:57 Intake & Output 02/11/20 02/12/20 02/13/20 06:59 06:59 06:59 Weight 68 kg General appearance: PRESENT: no acute distress, cooperative, well-developed, well-nourished Head exam: PRESENT: atraumatic, normocephalic Eye exam: PRESENT: EOMI, PERRLA. ABSENT: scleral icterus Mouth exam: PRESENT: moist, tongue midline Neck exam: PRESENT: full ROM. ABSENT: JVD, tenderness, thyromegaly Respiratory exam: PRESENT: clear to auscultation jass, symmetrical, unlabored. ABSENT: chest wall tenderness, rales, rhonchi, wheezes Cardiovascular exam: PRESENT: RRR, +S1, +S2. ABSENT: clicks, diastolic murmur, gallop, rubs, systolic murmur Pulses: PRESENT: normal radial pulses, normal dorsalis pedis pul GI/Abdominal exam: PRESENT: normal bowel sounds, soft. ABSENT: ascites, distended, tenderness Extremities exam: PRESENT: full ROM. ABSENT: clubbing, pedal edema, tenderness Musculoskeletal exam: PRESENT: ambulatory, full ROM. ABSENT: deformity, dislocation, tenderness Neurological exam: PRESENT: alert, awake, oriented to person, oriented to place, oriented to time, oriented to situation, CN II-XII grossly intact. ABSENT: altered, motor sensory deficit Psychiatric exam: PRESENT: appropriate affect, normal mood Skin exam: PRESENT: dry, intact, warm Results Laboratory Results: WBC 8.0 10^3/uL (4.0-10.5) 02/11/20 23:43 RBC 4.26 10^6/uL (3.72-5.28) 02/11/20 23:43 Hgb 13.4 g/dL (12.0-15.5) 02/11/20 23:43 Hct 38.3 % (36.0-47.0) 02/11/20 23:43 MCV 90 fl (80-97) 02/11/20 23:43 MCH 31.5 pg (27.0-33.4) 02/11/20 23:43 MCHC 35.0 g/dL (32.0-36.0) 02/11/20 23:43 RDW 14.2 % (11.5-14.0) H 02/11/20 23:43 Plt Count 272 10^3/uL (150-450) 02/11/20 23:43 Lymph % (Auto) 26.2 % (13-45) 02/11/20 23:43 [place] % (Auto) 7.5 % (3-13) 02/11/20 23:43 Eos % (Auto) 2.6 % (0-6) 02/11/20 23:43 Baso % (Auto) 0.4 % (0-2) 02/11/20 23:43 Absolute Neuts (auto) 5.1 10^3/uL (1.7-8.2) 02/11/20 23:43 Absolute Lymphs (auto) 2.1 10^3/uL (0.5-4.7) 02/11/20 23:43 Absolute Monos (auto) 0.6 10^3/uL (0.1-1.4) 02/11/20 23:43 Absolute Eos (auto) 0.2 10^3/uL (0.0-0.6) 02/11/20 23:43 Absolute Basos (auto) 0.0 10^3/uL (0.0-0.2) 02/11/20 23:43 Seg Neutrophils % 63.3 % (42-78) 02/11/20 23:43 PT 12.7 SEC (11.4-15.4) 02/11/20 23:43 INR 0.93 02/11/20 23:43 APTT 34.4 SEC (23.5-35.8) 02/12/20 13:05 Sodium 140.4 mmol/L (137-145) 02/11/20 23:43 Potassium 4.5 mmol/L (3.6-5.0) 02/11/20 23:43 Chloride 110 mmol/L (98-107) H 02/11/20 23:43 Carbon Dioxide 22 mmol/L (22-30) 02/11/20 23:43 Anion Gap 8 (5-19) 02/11/20 23:43 BUN 13 mg/dL (7-20) 02/11/20 23:43 Creatinine 1.00 mg/dL (0.52-1.25) 02/11/20 23:43 Est GFR ( Amer) > 60 (>60) 02/11/20 23:43 Est GFR (MDRD) Non-Af > 60 (>60) 02/11/20 23:43 Glucose 99 mg/dL (75-110) 02/11/20 23:43 Calcium 9.1 mg/dL (8.4-10.2) 02/11/20 23:43 Total Bilirubin 0.3 mg/dL (0.2-1.3) 02/11/20 23:43 Direct Bilirubin 0.2 mg/dL (0.0-0.4) 02/11/20 23:43 Neonat Total Bilirubin Not Reportable 02/11/20 23:43 Neonat Direct Bilirubin Not Reportable 02/11/20 23:43 Neonat Indirect Bili Not Reportable 02/11/20 23:43 AST 23 U/L (14-36) 02/11/20 23:43 ALT 22 U/L (<35) 02/11/20 23:43 Alkaline Phosphatase 60 U/L (38-126) 02/11/20 23:43 Troponin I < 0.012 ng/mL 02/11/20 23:43 Total Protein 7.0 g/dL (6.3-8.2) 02/11/20 23:43 Albumin 3.9 g/dL (3.5-5.0) 02/11/20 23:43 Serum HCG, Qual NEGATIVE (NEGATIVE) 02/11/20 23:43 Urine Color STRAW 02/12/20 10:55 Urine Appearance CLEAR 02/12/20 10:55 Urine pH 7.0 (5.0-9.0) 02/12/20 10:55 Ur Specific [place] 1.021 02/12/20 10:55 Urine Protein NEGATIVE mg/dL (NEGATIVE) 02/12/20 10:55 Urine Glucose (UA) NEGATIVE mg/dL (NEGATIVE) 02/12/20 10:55 Urine Ketones NEGATIVE mg/dL (NEGATIVE) 02/12/20 10:55 Urine Blood SMALL (NEGATIVE) H 02/12/20 10:55 Urine Nitrite NEGATIVE (NEGATIVE) 02/12/20 10:55 Urine Nitrite (Reflex) NEGATIVE (NEGATIVE) 02/11/20 23:43 Urine Bilirubin NEGATIVE (NEGATIVE) 02/12/20 10:55 Urine Urobilinogen NEGATIVE mg/dL (<2.0) 02/12/20 10:55 Ur Leukocyte Esterase NEGATIVE (NEGATIVE) 02/12/20 10:55 Leukocyte Esterase Rfl TRACE (NEGATIVE) H 02/11/20 23:43 Urine WBC (Auto) 0 /HPF 02/12/20 10:55 Urine RBC (Auto) 2 /HPF 02/12/20 10:55 Urine WBC (Reflex) 3 /HPF 02/11/20 23:43 Squamous Epi Cells Auto <1 /HPF 02/12/20 10:55 Urine Mucus (Auto) RARE /LPF 02/11/20 23:43 Urine Ascorbic Acid NEGATIVE (NEGATIVE) 02/12/20 10:55 02/11/20 23:43 Troponin I < 0.012 EKG Comments: Sinus rhythm with rate of 85. Possible left atrial abnormality. Borderline T wave flattening in anterior leads. Impressions: Chest X-Ray 02/11/20 23:18 IMPRESSION: No acute cardiopulmonary findings. Chest/Abdomen CTA 02/12/20 02:11 IMPRESSION: Pulmonary embolus identified peripheral left main pulmonary artery extending to left lower lobe. This is small to moderate thrombus burden and some of this disease is occlusive. Patchy areas of alveolar space disease left lower lobe in a subpleural distribution, suspicious for small areas of pulmonary infarction. Mild right heart strain . Plan Health Concerns: Provoked pulmonary embolism Plan of Treatment: Eliquis 10mg BID x7 days followed by 5mg BID for 3 months Goals: Prevention of recurrent blood clot Time Spent: Greater than 30 Minutes Stroke Is this a Stroke Patient?: No Acute Heart Failure Is this a Heart Failure Patient?: No
[2020-02-13] MEDS ORDERED: INFLUENZA QUAD (6MOS+) 2020-21 VAC 0.5 ML SYR IM ONE (08:00)
== END 2020-02-12 16:14 | disposition home or self-care (01) ==
LOC: ER 22:24 → INTOOBSV 02-12 04:16 → EH 02-12 04:16 → 4N 02-12 05:20
PROVIDERS: ADMIT Student in an Organized Health Care Education/Training Program; ATTEND Physician Assistant
DX: I26.99 Other pulmonary embolism without acute cor pulmonale (principal); R11.0 Nausea; E06.3 Autoimmune thyroiditis; N92.0 Excessive and frequent menstruation with regular cycle; Z79.3 Long term (current) use of hormonal contraceptives; Z82.49 Family history of ischemic heart disease and other diseases of the circulatory system; Z79.899 Other long term (current) drug therapy; Z98.51 Tubal ligation status
CPT/HCPCS: 93005; 99285; 96372; 96374; 96375; 36415 ×2; 84703; 85025; 85610; 85730; 80053; 81001 ×2; 84484; 93306; 71045; 71275; 93010; G0378; J3010; J2405; J1650

== ENCOUNTER 2020-02-13 16:03 | Emergency (ER) | payer SELFPAY ==
--- NOTE | 2020-02-13 16:26 | ER Document Report ---
ED Medical Screen (RME) - General Chief Complaint: Other Stated Complaint: COUGHING UP BLOOD/POST ADMISSION Time Seen by Provider: 02/13/20 16:18 Primary Care Provider: NATHALIE LÓPEZ FNP-C [Primary Care Provider] - Follow up as needed Mode of Arrival: Ambulatory Information source: Patient Notes: 39-year-old female patient discharged yesterday from the hospital for pulmonary embolism presenting to the emergency department after she started coughing up blood clots. Patient reports this scared her, she did not know if this was to be expected or not. Upon review of her records she was given both heparin and Lovenox while she was here in the hospital. She was sent home on Eliquis. She does continue to report left sided chest pain but states this is pain similar to what she came in with yesterday. Lung sounds clear and equal bilaterally, vital signs reviewed and are within normal limits. No hypoxia, tachypnea or tachycardia noted. I have greeted and performed a rapid initial assessment of this patient. A comprehensive ED assessment and evaluation of the patient, analysis of test results and completion of the medical decision making process will be conducted by additional ED providers. I have specifically instructed the patient or family members with the patient to immediately return to any nursing staff should anything change in the patient's condition or with their chief complaint. TRAVEL OUTSIDE OF THE [place] IN LAST 30 DAYS: No - Related Data Allergies/Adverse Reactions: No Known Allergies Allergy (Verified 11/05/18 10:38) Past Medical History - Past Medical History Cardiac Medical History: Denies: Hx Coronary Artery Disease, Hx Heart Attack, Hx Hypertension Pulmonary Medical History: Denies: Hx Asthma, Hx Bronchitis, Hx COPD, Hx Pneumonia Neurological Medical History: Denies: Hx Cerebrovascular Accident, Hx Seizures Renal/ Medical History: Reports: Hx Ovarian Cysts Musculoskeltal Medical History: Denies Hx Arthritis Psychiatric Medical History: Denies: Hx Depression Past Surgical History: Reports: Hx Section, Hx Dilation and Curettage, Hx Gynecologic Surgery, Hx Tubal Ligation. Denies: Hx Hysterectomy - Immunizations Immunizations up to date: Yes Hx Diphtheria, Pertussis, Tetanus Vaccination: Yes Physical Exam - Vital signs Vitals: Temp Pulse Resp BP Pulse Ox 98.1 F 80 16 116/79 98 02/13/20 16:15 02/13/20 16:15 02/13/20 16:15 02/13/20 16:15 02/13/20 16:15 Course - Vital Signs Vital signs: Temp Pulse Resp BP Pulse Ox 98.1 F 80 16 116/79 98 02/13/20 16:15 02/13/20 16:15 02/13/20 16:15 02/13/20 16:15 02/13/20 16:15 Doctor's Discharge - Discharge Referrals: NATHALIE LÓPEZ, [employer]-C [Primary Care Provider] - Follow up as needed
[2020-02-13 17:06] LABS: ABSOLUTE EOSINOPHILS # (AUTO) 0.1 10^3/uL (0.0-0.6); ABSOLUTE LYMPHOCYTES (AUTO) 2.2 10^3/uL (0.5-4.7); ABSOLUTE MONOCYTES (AUTO) 0.4 10^3/uL (0.1-1.4); ABSOLUTE NEUT (AUTO) 2.6 10^3/uL (1.7-8.2); BASOPHILS % (AUTO) 0.6 % (0-2); EOSINOPHILS % (AUTO) 1.8 % (0-6); HEMATOCRIT 40.1 % (36.0-47.0); LYMPHOCYTES % (AUTO) 41.6 % (13-45); MEAN CORPUSCULAR HEMOGLOBIN 31.5 pg (27.0-33.4); MEAN CORPUSCULAR VOLUME 90 fl (80-97); PLATELET COUNT 278 10^3/uL (150-450); RED BLOOD COUNT 4.46 10^6/uL (3.72-5.28); RED CELL DISTRIBUTION WIDTH 13.7 % (11.5-14.0); TOTAL CELLS COUNTED % (AUTO) 100 %; WHITE BLOOD COUNT 5.3 10^3/uL (4.0-10.5)
[2020-02-13 17:18] LABS: INTERNATIONAL RATION (INR) 1.21; PROTHROMBIN TIME 15.5 SEC (11.4-15.4)
[2020-02-13 17:24] LABS: ALBUMIN 3.9 g/dL (3.5-5.0); ALKALINE PHOSPHATASE 68 U/L (38-126); ANION GAP 9 (5-19); ASPARTATE AMINO TRANSFERASE 20 U/L (14-36); BILIRUBIN,DIRECT 0.3 mg/dL (0.0-0.4); BILIRUBIN,TOTAL 0.5 mg/dL (0.2-1.3); BLOOD UREA NITROGEN 13 mg/dL (7-20); CALCIUM 9.2 mg/dL (8.4-10.2); CARBON DIOXIDE 23 mmol/L (22-30); CHLORIDE 108 mmol/L (98-107); GLUCOSE 88 mg/dL (75-110); POTASSIUM 4.2 mmol/L (3.6-5.0)
--- NOTE | 2020-02-13 18:02 | EKG REPORT ---
SEVERITY:- OTHERWISE NORMAL ECG - SINUS ARRHYTHMIA, RATE [id number] : Confirmed by: Jonathan Hodges MD 13-Feb-2020 18:01:25
--- NOTE | 2020-02-13 19:18 | RADIOLOGY REPORT (SQ) ---
EXAM DESCRIPTION: CHEST SINGLE VIEW IMAGES COMPLETED DATE/TIME: 02/13/2020 7:08 pm REASON FOR STUDY: cough COMPARISON: 02/11/2020 EXAM PARAMETERS: NUMBER OF VIEWS: One view. TECHNIQUE: Single frontal radiographic view of the chest acquired. RADIATION DOSE: NA LIMITATIONS: None. FINDINGS: LUNGS AND PLEURA: No opacities, masses or pneumothorax. No pleural effusion. MEDIASTINUM AND HILAR STRUCTURES: No masses. Contour normal. HEART AND VASCULAR STRUCTURES: Heart normal in size. Normal vasculature. BONES: No acute findings. HARDWARE: None in the chest. OTHER: No other significant finding. IMPRESSION: NO ACUTE RADIOGRAPHIC FINDING IN THE CHEST. TECHNICAL DOCUMENTATION: JOB ID: [id number] [employer]- All Rights Reserved Reading location - IP/workstation name: [email or web address]
--- NOTE | 2020-02-13 19:27 | ER Document Report ---
Entered by ALVIN NESBITT SCRIBE 02/13/201915 Acting as scribe for:POLLY BLACKMON DO ED General - General Chief Complaint: Cough Stated Complaint: COUGHING UP BLOOD/POST ADMISSION Time Seen by Provider: 02/13/20 16:18 Primary Care Provider: NAHTALIE LÓPEZ FNP-C [Primary Care Provider] - Follow up as needed Mode of Arrival: Ambulatory Information source: Patient Notes: This 39 year old female patient presents to the emergency department today with complaints of a cough with hemoptysis starting today. Patient states she was discharged from the hospital yesterday after being diagnosed with a pulmonary embolism. Patient states she was sent home with eliquis and has taken x2 doses so far. Patient states she was told her PE was possibly caused by her taking control, which she has been on for x4 years. Patient states today she began to cough up blood clots and was worried. Patient reports some burning in her upper abdomen and lower chest from before her recent visits, and is relieved with Tylenol. TRAVEL OUTSIDE OF THE [place] IN LAST 30 DAYS: No - Related Data Allergies/Adverse Reactions: No Known Allergies Allergy (Verified 11/05/18 10:38) Home Medications: eliquis, zofran, omeprazole, rizatriptan, thyroid armour, topi ramate Past Medical History - General Information source: Patient - Social History Smoking Status: Never Smoker Cigarette use (# per day): No Chew tobacco use (# tins/day): No Frequency of alcohol use: None Drug Abuse: None Lives with: Family Family History: Reviewed & Not Pertinent, Arthritis, CAD, DM, Hyperlipidemia, Hypertension, Malignancy, Thyroid Disfunction - Past Medical History Cardiac Medical History: Reports: Hx Pulmonary Embolism - 02/12/20 Renal/ Medical History: Reports: Hx Ovarian Cysts GI Medical History: Reports: Hx Gastroesophageal Reflux Disease, Hx Hiatal Hernia Past Surgical History: Reports: Hx Section - x3, Hx Dilation and Curettage - x3, Hx Gynecologic Surgery, Hx Hysterectomy - partial, Hx Tubal Ligation - Immunizations Immunizations up to date: Yes Hx Diphtheria, Pertussis, Tetanus Vaccination: Yes Review of Systems - Review of Systems Constitutional: No symptoms reported EENT: No symptoms reported Cardiovascular: See HPI, Other - burning in lower chest Respiratory: See HPI, Cough, Hemoptysis - blood clots Gastrointestinal: See HPI, Other - burning in upper abdomen Genitourinary: No symptoms reported Female Genitourinary: No symptoms reported Musculoskeletal: No symptoms reported Skin: No symptoms reported Hematologic/Lymphatic: No symptoms reported Neurological/Psychological: No symptoms reported -: Yes All other systems reviewed and negative Physical Exam - Vital signs Vitals: Temp Pulse Resp BP Pulse Ox 98.1 F 80 16 116/79 98 02/13/20 16:15 02/13/20 16:15 02/13/20 16:15 02/13/20 16:15 02/13/20 16:15 - General General appearance: Appears well, Alert - HEENT Head: Normocephalic, Atraumatic Eyes: Normal Pupils: PERRL - Respiratory Respiratory status: No respiratory distress Chest status: Nontender Breath sounds: Normal Chest palpation: Normal - Cardiovascular Rhythm: Regular Heart sounds: Normal auscultation Murmur: No - Abdominal Inspection: Normal Distension: No distension Bowel sounds: Normal Tenderness: Nontender Organomegaly: No organomegaly - Extremities General upper extremity: Normal inspection, Normal ROM General lower extremity: Normal inspection, Normal ROM. No: Edema - Neurological Neuro grossly intact: Yes Cognition: Normal Orientation: AAOx4 [place] Coma Scale Eye Opening: Spontaneous [place] Coma Scale Verbal: Oriented [place] Coma Scale Motor: Obeys Commands [place] Coma Scale Total: 15 Speech: Normal Motor strength normal: LUE, RUE, LLE, RLE Sensory: Normal - Psychological Associated symptoms: Normal affect, Normal mood - Skin Skin Temperature: Warm Skin Moisture: Dry Skin Color: Normal Course - Re-evaluation Re-evalutation: 02/13/20 19:43 MDM 39 year old female with known pe is here with cough and hemoptysis. CXR is normal and labs are reviewed. I have discussed the pt with Dr. Martinez and she agrees with treatment plan. - Vital Signs Vital signs: Temp Pulse Resp BP Pulse Ox 98 F 80 14 103/73 100 02/13/20 19:55 02/13/20 16:15 02/13/20 19:54 02/13/20 19:54 02/13/20 19:54 - Laboratory Result Diagrams: 02/13/20 16:41 02/13/20 16:41 Laboratory results interpreted by me: 02/13/20 02/13/20 16:41 16:41 PT 15.5 H APTT 42.0 H Chloride 108 H - Diagnostic Test Radiology reviewed: Image reviewed, Reports reviewed - EKG Interpretation by Me EKG shows normal: Sinus rhythm Rate: Normal Rhythm: NSR - NSR NL [place] [address] elevation or depression my interpretation. Discharge - Discharge Clinical Impression: Cough with hemoptysis Condition: Stable Disposition: HOME, SELF-CARE Instructions: Hemoptysis ([facility]) Additional Instructions: See your doctor in follow up. Continue tylenol for pain as needed. Avoid aspirin or ibuprofen. Return here for shortness of breath increasing blood when you cough or other problems or concerns. Take pepcid (famotidine) 20 mg twice a day. Continue the eloquis as directed. See your doctor routinely for follow up in the next few weeks. Referrals: NATHALIE LÓPEZ, [employer]ATE DIRECTOR OF [employer]ARMACY-C [Primary Care Provider] - Follow up as needed I personally performed the services described in the documentation, reviewed and edited the documentation which was dictated to the scribe in my presence, and it accurately records my words and actions.
[2020-02-13 20:00] VITALS: BP 103/73
== END 2020-02-13 20:00 | disposition home or self-care (01) ==
LOC: ER 16:03
DX: I26.99 Other pulmonary embolism without acute cor pulmonale (principal); R04.2 Hemoptysis; K21.9 Gastro-esophageal reflux disease without esophagitis; Z79.899 Other long term (current) drug therapy
CPT/HCPCS: 36415; 71045; 80053; 85025; 85610; 85730; 86850; 86900; 86901; 93005; 93010; 99285